=== PATIENT | male | born 1990 | race Caucasian/White ===

== ENCOUNTER 2022-01-25 17:42 | Emergency (ER) | payer OTHER ==
[~2022-01-25] VITALS: Ht 177.8 cm; Wt 77.2 kg
[2022-01-25 17:48] VITALS: BP 116/81
[2022-01-25] MEDS ORDERED: BENADRYL25 M1 PO (18:15)
[2022-01-25] MEDS ORDERED: VISTARIL25 MG PO (18:15)
[2022-01-25] MEDS ORDERED: PREDNISONE20 MG PO (18:15)
[2022-01-25 18:19] VITALS: BP 116/81
== END 2022-01-25 18:38 | disposition home or self-care (01) | DRG 918 ==
LOC: ED 17:42
DX: T63.441A Toxic effect of venom of bees, accidental (unintentional), initial encounter (principal); Y92.009 Unspecified place in unspecified non-institutional (private) residence as the place of occurrence of the external cause